=== PATIENT | male | born 1955 | race Hispanic/Latino ===

== ENCOUNTER 2019-07-30 13:41 | Emergency (ER) | payer OTHER ==
[2019-07-30] MEDS ORDERED: SODIUM CHLORIDE 0.9% (FLUSH) 10 ML SYG IV PRN (14:00)
[2019-07-30] MEDS ORDERED: KETOROLAC TROMETHAMINE INJ 30 MG/ML VIAL IV ONE (14:02)
[2019-07-30] MEDS ORDERED: SODIUM CHLORIDE 0.9% 1000ML 1,000 ML IVS ONE (14:02)
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
[2019-07-30 14:16] VITALS: TEMP 97.7; O2SAT 98
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
[2019-07-30] MEDS ORDERED: INSULIN, REG.(HUMAN) 100 U/ML VIAL IV ONE (14:52)
[2019-07-30 16:20] VITALS: BP 172/87
== END 2019-07-30 16:33 | disposition home or self-care (01) ==
LOC: ER 13:41
DX: S40.011A Contusion of right shoulder, initial encounter (principal); R51 Headache; M54.2 Cervicalgia; R73.9 Hyperglycemia, unspecified; V49.49XA Driver injured in collision with other motor vehicles in traffic accident, initial encounter; Y92.410 Unspecified street and highway as the place of occurrence of the external cause
CPT/HCPCS: 36416; 70450; 71045; 72125; 73030; 80053; 82948; 83880; 84484; 85025; 85610; 85730; 93005; J1885; J7030

== ENCOUNTER → 2019-10-05 | Outpatient (CLI) | payer OTHER ==
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
== END ==
LOC: MRI 12:59
PROVIDERS: ATTEND Nurse Practitioner Family
DX: M75.101 Unspecified rotator cuff tear or rupture of right shoulder, not specified as traumatic (principal); M19.011 Primary osteoarthritis, right shoulder; M75.51 Bursitis of right shoulder; M94.8X1 Other specified disorders of cartilage, shoulder; M25.9 Joint disorder, unspecified; M95.8 Other specified acquired deformities of musculoskeletal system